=== PATIENT | male | born 1975 | race Two or more races ===

== ENCOUNTER 2025-03-09 14:02 | Emergency (ER) | payer BC, OTHER ==
[~2025-03-09] VITALS: Ht 167.6 cm; Wt 98.5 kg
--- NOTE | 2025-03-09 14:48 | ED.PDOC ---
History of Present Illness(SKN HPI Comments 49M PRESENTS TO THE ER W/ THE C/C OF AN INSECT BITE. PT REPORTS ON POSSIBLY BEING BIT BY A SPIDER TO THE LEFT temporal area 2 days ago. PT STATES ON BEING SEEN AT AN YESTERDAY and was rx Keflex and IBU but CAME INTO THE ER DUE due to worsening SYMPTOMS. Chief Complaint: Wound Check Time Seen by MD: 14:45 History of Present Illness: Nurses Notes, Medications, Allergies Allergies: Coded Allergies: NO KNOWN ALLERGIES (Unverified , 03/09/25) Information Source: Patient Mode of Arrival: Ambulatory Severity: Moderate Timing: Hours Duration: Since onset, Hours Prehospital treatment: None Location: Hand Mechanism: Spider (POSSIBLE) Object: None Condition of Object: None Retained Foreign Body: Unknown Wound Type: Puncture Immunization Status of Animal: NA Tetanus: Unknown History of: None Associated Signs and Symptoms: Redness Past Medical History PAST MEDICAL HISTORY: Denies Surgical History: Denies all surgeries Family History Family History: Reviewed,noncontributory to illness, Unknown Social History Smoker: Non-Smoker Alcohol: Denies ETOH Use Drugs: Denies Drug Use Lives In: Home Constitutional: denies: chills, diaphoresis, fatigue, fever, malaise, sweats, weakness, others EENTM: denies: blurred vision, double vision, ear bleeding, ear discharge, ear drainage, ear pain, ear ringing, eye pain, eye redness, hearing loss, mouth pain, mouth swelling, nasal discharge, nose bleeding, nose congestion, nose pain, photophobia, tearing, throat pain, throat swelling, voice changes, others Respiratory: denies: cough, hemoptysis, orthopnea, SOB at rest, shortness of breath, SOB with excertion, stridor, wheezing, others Cardiovascular: denies: chest pain, dizzy spells, diaphoresis, Dyspnea on exertion, edema, irregular heart beat, left arm pain, lightheadedness, palpitations, PND, syncope, others Gastrointestinal: denies: abdomen distended, abdominal pain, blood streaked bowels, constipated, diarrhea, dysphagia, difficulty swallowing, hematemesis, melena, nausea, poor appetite, poor fluid intake, rectal bleeding, rectal pain, vomiting, others Genitourinary: denies: burning, dysuria, flank pain, frequency, hematuria, incontinence, penile discharge, penile sore, pain, testicle pain, testicle swelling, urgency, others Neurological: denies: dizziness, fainting, headache, left sided numbness, left sided weakness, numbness, paresthesia, pre-existing deficit, right sided numbness, right sided weakness, seizure, speech problems, tingling, tremors, weakness, others Musculoskeletal: denies: back pain, gout, joint pain, joint swelling, muscle pain, muscle stiffness, neck pain, others Integumetry: reports: others (POSSIBLE SPIDER BITE TO THE HAND); denies: bruises, change in color, change in hair/nails, dryness, laceration, lesions, lumps, rash, wounds Allergic/Immunocompromised: denies: Difficulty Healing, Frequent Infections, Hives, Itching, others Hematologic/Lymphatic: denies: anemia, blood clots, easy bleeding, easy bruising, swollen glands, others Endocrine: denies: excessive hunger, excessive sweating, excessive thirst, excessive urination, flushing, intolerance to cold, intolerance to heat, unexplained weight gain, unexplained weight loss, others Psychiatric: denies: anxiety, bipolar disorder, depression, hopeless, panic disorder, schizophrenia, sleepless, suicidal, others All Other Systems: Reviewed and Negative Physical Exam General Appearance: No Apparent Distress, Normal HEENT: Head, Normal ENT Inspection, Pharynx Normal, TMs Normal Neck: Full Range of Motion, Non-Tender, Normal, Normal Inspection Respiratory: Chest Non-Tender, Lungs Clear, No Accessory Muscle Use, No Respiratory Distress, Normal Breath Sounds Cardiovascular: No Edema, No JVD, No Murmur, No Gallop, Normal Peripheral Pulses, Regular Rate/Rhythm Breast Exam: Deferred Gastrointestinal: No Organomegaly, Non Tender, No Pulsatile Mass, Normal Bowel Sounds, Soft Genitalia: Deferred Pelvic: Deferred Rectal: Deferred Extremities: No calf tenderness, Normal capillary refill, Normal inspection, Normal range of motion, Non-tender, No pedal edema Musculoskeletal : Apperance: Normal Neurologic: Alert, transcripter II-XII nml as Tested, No Motor Deficits, Normal Affect, Normal Mood, No Sensory Deficits Cerebellar Function: Normal Reflexes: Normal Skin: Dry, Normal Color, Warm Lymphatic: No Adenopathy Was a procedure done? Was a procedure done?: No Images 1 - 2x2 for erythematous boil. TTP. No fluctuance. Differential Diagnosis (INTG) Differential Diagnosis: Cellulitis, Insect Envenomation, Puncture Wound X-Ray, Labs, Meds, VS Vital Signs Date Time Temp Pulse Resp B/P (MAP) Pulse Ox O2 Delivery O2 Flow Rate FiO2 03/09/25 15:17 98.5 94 18 143/83 (103) 99 98.5 03/09/25 15:17 94 18 99 Room Air 03/09/25 14:02 98.2 111 18 149/81 95 98.2 X-Ray, Labs, Meds, VS Comment Patient likely with local inflammatory response from possible insect bite/sting. No evidence of systemic reaction such as shortness of breath, diffuse rash, drooling, facial/lip swelling. Doubtful for cellulitis given no fever, minimal erythema, minimal warmth. Patient remains with minimal symptoms. Remains hemodynamically stable. Thought safe for discharge home. Tylenol and/or motrin at home for pain. Benadryl for itchiness. Hydrocortisone for itchiness. Ice/cold compress for comfort. Follow-up with primary care doctor in 2-3 days. Return to ER as needed. Time of 1ST Reevaluation: 15:15 Reevaluation 1ST: Unchanged Patient Education/Counseling: Diagnosis, Treatment, Prognosis Family Education/Counseling: No Family Present SEPSIS Sepsis Screen Date sepsis recognized/suspect: Mar 09, 2025 Time Sepsis recognized/suspect: 1402 Recent Procedure: No On Antibiotic Therapy: Yes Respiratory Rate >20: No Heart Rate >90: Yes Temp<36 C (96.8 F) or >38.3 C: No SBP <90 or MAP <65 mmHG: No New Acute Mental Status Change: No Is the patient on CPAP, BIPAP,: No Vital Signs Date Time Temp Pulse Resp B/P (MAP) Pulse Ox O2 Delivery O2 Flow Rate FiO2 03/09/25 15:17 98.5 94 18 143/83 (103) 99 98.5 03/09/25 15:17 94 18 99 Room Air 03/09/25 14:02 98.2 111 18 149/81 95 98.2 Departure 1 Departure Time of Disposition: 15:29 Impression: Primary Impression: Insect bite Qualified Codes: S00.06XA - Insect bite (nonvenomous) of scalp, initial encounter; W57.XXXA - Bitten or stung by nonvenomous insect and other nonvenomous arthropods, initial encounter Disposition: HOME / SELF CARE / HOMELESS Condition: Stable e-Prescriptions Acetaminophen (Acetaminophen) 500 Mg Tab 500 MG PO Q6HP PRN for 10 Days, #40 TAB 0 Refills Prov: OLIVIER VARMA NP 03/09/25 Methylprednisolone (Medrol Dosepak) 4 Mg [place] 4 MG PO UD, #21 TAB 0 Refills UAD Prov: OLIVIER VARMA NP 03/09/25 Discharged With: Self Critical Care Note Critical Care Time?: No Stability Stability form required: No Heart Score Heart Score: Heart Score Response (Comments) Value History N/A 0 EKG N/A 0 Age N/A 0 Risk Factors N/A 0 Troponin N/A 0 Total 0 I personally scribed for OLIVIER VARMA NP ([email or web address]) on 03/09/25 at 14:48. Electronically submitted by Dharmesh Royal ([email or web address]). OLIVIER VARMA NP Mar 09, 2025 14:48
[2025-03-09 15:17] VITALS: BP 143/83; PULSE 94; RESP 18; TEMP 98.5; O2SAT 99
[2025-03-09] MEDS ORDERED: METH4PAK PO (15:31)
[2025-03-09] MEDS ORDERED: ACET500T58 PO (15:31)
== END 2025-03-09 15:38 | disposition home or self-care (01) ==
LOC: ER 14:02
DX: S01.03XA Puncture wound without foreign body of scalp, initial encounter (principal); W57.XXXA Bitten or stung by nonvenomous insect and other nonvenomous arthropods, initial encounter; Y93.89 Activity, other specified; Y92.89 Other specified places as the place of occurrence of the external cause; Y99.8 Other external cause status